=== PATIENT | male | born 1995 | race African-American/Black ===

== ENCOUNTER 2017-12-17 19:10 | Emergency (ER) | payer OTHER ==
[2017-12-17] MEDS ORDERED: cefTRIAXone\\ROCEPHIN 250 MG VIAL ONE (21:48)
[2017-12-17] MEDS ORDERED: Azithromycin 250 MG TAB ONE (21:48)
[2017-12-19 09:01] LABS: Chlamydia by PCR DETECTED (NotDetected); GC by PCR Not Detected (NotDetected)
== END 2017-12-17 22:08 | disposition home or self-care (01) ==
LOC: ERS 19:10
DX: Z20.2 Contact with and (suspected) exposure to infections with a predominantly sexual mode of transmission (principal)
CPT/HCPCS: 87491; 87591; 96372; J0696